=== PATIENT | female | born 1955 | race Caucasian/White ===

== ENCOUNTER 2022-09-14 05:58 | Observation (INO) | payer OTHER ==
--- NOTE | 2022-09-09 10:50 | RAD REPORT ---
EXAM DESCRIPTION: Dre Harmon (2 Views)09/09/2022 10:17 am CLINICAL HISTORY: Preop for hip surgery COMPARISON: None FINDINGS: The lungs appear clear of acute infiltrate. The heart is normal size IMPRESSION: No acute abnormalities displayed
[2022-09-09 11:10] LABS: Absolute Lymphocytes (CBC) 1.6 K/uL (0.7-4.9); Hematocrit 37.9 % (36.0-45.0); Lymphocytes % 19.6 % (15.3-44.8); MCV 91.9 fL (80-100); MPV 7.9 fL (7.6-11.3); RBC Red Blood Cell Count 4.12 M/uL (3.86-4.86)
[2022-09-09 11:14] LABS: Protime INR 1.05
[2022-09-09 11:26] LABS: Albumin 3.9 g/dL (3.4-5.0); Bilirubin Total 0.3 mg/dL (0.2-1.0); Potassium 4.1 mmol/L (3.5-5.1); Protein, Total 8.2 g/dL (6.4-8.2)
[2022-09-09 12:51] LABS: Specific Gravity 1.028 (1.005-1.030); Urine Bacteria <20 /HPF (<20); Urine Bilirubin NEGATIVE (Negative); Urine Blood Negative (Negative); Urine Clarity Clear (Clear); Urine Color Light-Yellow (Yellow); Urine Glucose NEGATIVE (Negative); Urine Protein NEGATIVE (Negative); Urine RBC <5 /HPF (None Seen); Urine Urobilinogen Normal (Normal); Urine pH 5.5 (5.0-7.0)
[2022-09-09 12:54] LABS: Urine Mucus Slight /HPF (None Seen)
[2022-09-14] MEDS ORDERED: BUPIVACAINE 0.75% (PF) 2 ML SP ONE (06:21)
[2022-09-14] MEDS ORDERED: MORPHINE SULFATE/PF 1 MG/ML (10 ML AMP) ONE (06:21)
[2022-09-14] MEDS ORDERED: BUPIVACAINE 0.25% PF 30 ML VIAL ONE (06:21)
[2022-09-14] MEDS ORDERED: EPINEPHRINE/PF 1 MG/ML AMP ONE ×2 (06:21→09:48)
[2022-09-14] MEDS ORDERED: Oxycodone HCl/Acetaminophen 1 TAB TAB ONE (06:22)
[2022-09-14] MEDS ORDERED: Ringers Lactate 1,000 ML IV ONE ×2 (06:22→08:59)
[2022-09-14] MEDS ORDERED: ACETAMINOPHEN 500 MG TAB ONE (06:22)
[2022-09-14] MEDS ORDERED: CEFAZOLIN SODIUM 2 GM/VIAL ONE (06:22)
[2022-09-14] MEDS ORDERED: CELECOXIB 100 MG CAPSULE ONE (06:22)
[2022-09-14] MEDS ORDERED: GABAPENTIN 100 MG CAP ONE (06:22)
[2022-09-14 06:30] LABS: SARS-CoV-2 Antigen Rapid Res Negative (Negative)
[2022-09-14] MEDS ORDERED: FENTANYL CITR 100 MCG/2 ML ONE (06:34)
[2022-09-14] MEDS ORDERED: LIDOCAINE 2% MPF 5 ML VIAL ONE (06:45)
[2022-09-14] MEDS ORDERED: MIDAZOLAM HCL 2 MG/2 ML INJ ONE (06:45)
[2022-09-14] MEDS ORDERED: propofoL 200 MG/20 ML VIAL IV ONE ×3 (06:52→08:38)
[2022-09-14] MEDS ORDERED: Phenylephrine HCl 10 MG/ML 1 ML VIAL ONE (07:16)
[2022-09-14] MEDS ORDERED: NS 0.9% VIAL 10 ML ONE (07:16)
[2022-09-14] MEDS ORDERED: ROCURONIUM 50 MG/5 ML VIAL IV ONE (07:21)
[2022-09-14] MEDS ORDERED: VECURONIUM 10 MG/VIAL IV ONE (08:06)
[2022-09-14] MEDS ORDERED: NS 0.9% VIAL 20 ML ONE (08:07)
[2022-09-14] MEDS: TRANEXAMIC ACID 1,000 MG/10 ML VIAL IV ONE ×2 (08:27→10:00)
[2022-09-14] MEDS ORDERED: dexAMETHasone 10 MG/ML VIAL ONE (09:49)
[2022-09-14] MEDS ORDERED: SUGAMMADEX SODIUM 200 MG/2 ML VIAL IV ONE (10:14)
[2022-09-14] MEDS ORDERED: DOCUSATE NA 100 MG CAP PO PRN (10:39)
[2022-09-14] MEDS ORDERED: HYDROCODONE/APAP 7.5/325 MG TAB PO PRN (10:39)
[2022-09-14] MEDS ORDERED: ONDANSETRON 4 MG/2 ML VIAL IV PRN (10:39)
--- NOTE | 2022-09-14 10:39 | P.BOP ---
Preoperative diagnosis: left hip arthritis Postoperative diagnosis: same Primary procedure: left total hip arthoplasty Estimated blood loss: 150ccs Anesthesia: General Complications: None Transferred to: Recovery Room Condition: Good
--- OUTSIDE RECORDS SUMMARY | 2022-09-14 11:15 | XMS REPORT | Continuity of Care Document ---
:1955 Author Organization [facility] t Address [address] [place] [id number] Care Team Providers Name Role Phone John Hay Primary Care Physician [phone] John Hay Attending Clinician Unavailable Sean Mendieta Attending Clinician Unavailable KYLE GAO Attending Clinician Unavailable Rupa Attending Clinician Unavailable Sean Mendieta Attending Clinician [phone] Frances Perez MA Attending Clinician Unavailable John Hay Admitting Clinician Unavailable Sean Mendieta Admitting Clinician Unavailable Rupa Admitting Clinician Unavailable Payers Payer Name Policy Type Policy Number Effective Date Expiration Date S marcy JASMYNER [id number] 2020 [facility] 00:00:00 [facility] 53 [id number] 2022 Common Spiri t 00:00:00 - [facility] AMBETTER [place] - [id number] [facility] 3 (O) Ambetter from [id number] 2021 Common Spi [address] [facility] 00:00:00 - [facility] Problems Condition Condition Condition Status Onset Resolution Last Treating Co mments Source Name Details Category Date Date Treatment Clinician Date Limp Limp Disease Active [facility] 00:00: 00 [id number] Pain of Problem Comm on right hip [facility] [id number] Primary Problem Comm on osteoarthr Spirit itis of - [facility] left hip [facility] [id number] Pain of Problem Comm on left hip Spirit joint - [facility] [id number] Status Problem Common post right [facility] hip - [facility] [id number] Body mass Problem Com mon index Spirit [BMI] - [facility] 37.0-37.9, [facility] [id number] Other Problem Common obesity Spirit due to - [facility] excess [facility] [id number] Morbid Problem Commo n 9104 (severe) Spirit obesity - [facility] due to [facility] [id number] Gastroesop Problem Co mmon hageal Spirit reflux - [facility] disease [facility] esophagiti Medica l s, Center unspecifie d whether hemorrhage [id number] Adult BMI Problem Com mon 40.0-44.9 Spirit kg/sq m - [facility] [id number] PUD Problem Common (peptic Spirit ulcer - [facility] disease) [facility] [id number] Mixed Problem Common hyperlipid Spirit emia - [facility] [id number] Benign Problem Common essential Spirit HTN - [facility] [id number] Non-season Problem Com mon al Spirit allergic - [facility] rhinitis, [facility] Right hip Right hip Problem Com mon crepitus crepitus Spirit - [facility] [id number] Primary Problem Comm on osteoarthr Spirit itis of - [facility] right hip [facility] Allergies, Adverse Reactions, Alerts Allergy Allergy Status Severity Reaction(s) Onset Inactive Treating Comm ents Source Name Type Date Date Clinician No Known DA Active [facility]12 Clear Allergie 00:00: Lew s [address] [place] [address] Social History Social Habit Start Date Stop Date Quantity Comments Source History of Common Spirit - Tobacco Use [facility] Sex Assigned At Common Sp steve - [facility] Exposure to Not sure [facility] SARS-CoV-2 (event) Alcohol intake 2021-10-22 2021-10-22 Lifetime [facility] 00:00:00 00:00:00 non-drinker (finding) Tobacco use and 2021-04-24 2021-04-24 Smokeless tobacco [facility] exposure 00:00:00 00:00:00 non-user Smoking Status Start Date Stop Date Source Never Smoker Common [employer] [facility] Medications Ordered Filled Start Stop Current Ordering Indication Dosage Frequency Signature Comments Components Source Medication Medication Date Date Medication? Clinician (SIG) Name Name omeprazole 2022- No [id number] 20mg QD Take 1 [facility] (PriLOSEC) 10-22 9102 capsule [facility] [address] 00:00: 04:59 (20 mg capsule 00 :00 total) by mouth 1 (one) time each day. Do not crush or chew. Diclofenac 2021- No [id number] Apply [facility] 10-22 9102 [id number] topically [facility] (Voltaren) 00:00: 04:59 3D 3 (three) 1 % 00 :00 times a external day if gel needed (pain). APPLY 4 GRAMS TO AFFECTED AREA, DO NOT EXCEED GREATER THAN 16 GRAMS A DAY meloxicam 2021- No [id number] 7.5mg Take 1 [facility] (Mobic) 7.5 10-22 9102 tablet [facility]alt [facility] MG tablet 00:00: 04:59 (7.5 mg 00 :00 total) by mouth 1 (one) time each day if needed (pain). celecoxib Yes [id number] TAKE 1 [facility] (CeleBREX) 3- 9108 CAPSULE BY [facility]a [facility]th 200 MG 00:00: MOUTH 1 capsule 00 TIME EACH DAY. celecoxib Yes [id number] TAKE 1 [facility] (CeleBREX) 1-19 9108 CAPSULE BY [facility] 200 MG 00:00: MOUTH 1 capsule 00 TIME EACH DAY. meloxicam 2021- No [id number] 7.5mg TAKE 1 [facility] (Mobic) 7.5 14 02-14 104 TABLET Healt [facility] MG tablet 00:00: 05:59 (7.5 MG 00 :00 TOTAL) BY MOUTH 1 (ONE) TIME EACH DAY IF NEEDED (PAIN). Ibuprofen-F 2020-08- No 1{tbl} Take 1 U T amotidine 09-17-17 tablet by Heal th 800-26.6 MG 14:07: 00:00 mouth. tablet 54 :00 celecoxib 2020-08- No [id number] 200mg QD Take 1 [facility] (CeleBREX) 09-17 9108 capsule Healt h 200 MG 00:00: 05:59 (200 mg capsule 00 :00 total) by mouth 1 (one) time each day. Diclofenac 2020-08- No [id number] Apply [facility] Sodium 09-17 9108 [id number] topically [facility] (Voltaren) 00:00: 05:59 3D 3 (three) 1 % 00 :00 times a external day if gel needed (pain). APPLY 4 GRAMS TO AFFECTED AREA, DO NOT EXCEED GREATER THAN 16 GRAMS A DAY lisinopril- 2020-08 Yes [facility] hydroCHLORO 0-23 Health thiazide 00:00: 20-25 MG 00 tablet lisinopril- 2020-08 Yes [facility] hydroCHLORO 0-23 Health thiazide 00:00: 20-25 MG 00 tablet lisinopril- 2020-08 Yes [facility] hydroCHLORO 0-23 Health thiazide 00:00: 20-25 MG 00 tablet lisinopril- 2020-08 Yes [facility] hydroCHLORO 0-01 Health thiazide 00:00: 20-25 MG 00 tablet Meloxicam 2020-08 Yes [facility] 7.5 MG 0-01 Health tablet 00:00: dispersible 00 lisinopril- 2020-08 Yes [facility] hydroCHLORO 0-01 Health thiazide 00:00: 20-25 MG 00 tablet Meloxicam 2020-08 Yes [facility] 7.5 MG 0-01 Health tablet 00:00: dispersible 00 lisinopril- 2020-08 Yes UT hydroCHLORO 0-01 Health thiazide 00:00: 20-25 MG 00 tablet Meloxicam 2020-08 Yes [facility] 7.5 MG 0-01 Health tablet 00:00: dispersible 00 Ibuprofen-F 2020-0 Yes 1{tbl} Take 1 UT amotidine 9-24 tablet by Healt h 800-26.6 MG 13:35: mouth. tablet 15 Ibuprofen-F Yes 1{tbl} Take 1 [facility] amotidine 9-24 tablet by Healt h 800-26.6 MG 13:35: mouth. tablet 15 omeprazole 2020- No [id number] 20mg QD Take 1 [facility] OTC 04-24 104 tablet (20 Health (PriLOSEC 00:00: 04:59 mg total) OTC) 20 MG 00 :00 by mouth 1 EC tablet (one) time each day. Do not crush, chew, or split. Take w/ NSAID Diclofenac 2020- No [id number] Apply [facility] 04-24 104 [id number] topically [facility] (Voltaren) 00:00: 04:59 3D 3 (three) 1 % 00 :00 times a external day if gel needed (pain). Apply 4 grams to affected area not to exceed 16 grams every day meloxicam 2020- No [id number] 7.5mg Take 1 [facility] (Mobic) 7.5 04-24 104 tablet Healt h MG tablet 00:00: 04:59 (7.5 mg 00 :00 total) by mouth 1 (one) time each day if needed (pain). omeprazole 2020- No [id number] 20mg QD Take 1 UT OTC 04-24 104 tablet (20 Health (PriLOSEC 00:00: 04:59 mg total) OTC) 20 MG 00 :00 by mouth 1 EC tablet (one) time each day. Do not crush, chew, or split. Take w/ NSAID Diclofenac 2020- No [id number] Apply [facility] Sodium 04-24 104 [id number] topically [facility] (Voltaren) 00:00: 04:59 3D 3 (three) 1 % 00 :00 times a external day if gel needed (pain). Apply 4 grams to affected area not to exceed 16 grams every day meloxicam 2020- No [id number] 7.5mg Take 1 UT (Mobic) 7.5 04-24 104 tablet Healt h MG tablet 00:00: 04:59 (7.5 mg 00 :00 total) by mouth 1 (one) time each day if needed (pain). methylPREDN 2020- No [id number] 4mg Take 1 UT ISolone 04-24 104 tablet (4 Health (Medrol 00:00: 04:59 mg total) Dospak) 4 00 :00 by mouth 1 MG tablets (one) time for 1 dose. Use as directed by package instructio ns methylPREDN 2020- No [id number] 4mg Take 1 UT ISolone 04-24 104 tablet (4 Health (Medrol 00:00: 04:59 mg total) Dospak) 4 00 :00 by mouth 1 MG tablets (one) time for 1 dose. Use as directed by package instructio ns lisinopril- 2020-0 Yes [facility] hydroCHLORO 04-07 Health thiazide 00:00: 10-12.5 MG 00 tablet lisinopril- 2020-0 Yes [facility] hydroCHLORO 04-07 Health thiazide 00:00: 10-12.5 MG 00 tablet lisinopril- 2020-0 2020- No [facility] hydroCHLORO 04-07 12-17 Health thiazide 00:00: 00:00 10-12.5 MG 00 :00 tablet albuterol albuterol No albuterol Mayela sulfate HFA sulfate HFA sulfate [facility] 90 90 HFA 90 dic mcg/actuati mcg/actuati mcg/actuat Sports on aerosol on aerosol ion Med icin inhaler inhaler aerosol e inhaler celecoxib celecoxib No celecoxib Mayela 200 mg 200 mg 200 mg [facility] capsule capsule capsule dic Sports Medicin e diclofenac diclofenac No diclofenac Mayela 1 % topical 1 % topical 1 % O rthope gel gel topical dic gel Sports Medicin e lisinopril lisinopril No lisinopril Mayela 10 10 10 [facility] mg-hydrochl mg-hydrochl mg-hydroch dic orothiazide orothiazide lorothiazi Sports 12.5 mg 12.5 mg de 12.5 mg Med icin tablet tablet tablet e lisinopril lisinopril No lisinopril Mayela 20 20 20 [facility] mg-hydrochl mg-hydrochl mg-hydroch dic orothiazide orothiazide lorothiazi Sports 25 mg 25 mg de 25 mg Medicin tablet tablet tablet e meloxicam meloxicam No meloxicam Mayela 7.5 mg 7.5 mg 7.5 mg [facility] tablet tablet tablet dic Sports Medicin e methylpredn methylpredn No methylpred Mayela isolone 4 isolone 4 nisolone 4 [facility] mg tablet mg tablet mg tablet dic Sports Medicin e omeprazole omeprazole No omeprazole Mayela 20 mg 20 mg 20 mg [facility] capsule,del capsule,del capsule,de dic ayed ayed layed Sports release release release Medici n e omeprazole omeprazole No omeprazole Mayela 40 mg 40 mg 40 mg [facility] capsule,del capsule,del capsule,de dic ayed ayed layed Sports release release release Medici n e Suprep Suprep No Suprep Mayela Bowel Prep Bowel Prep Bowel Prep [facility] Kit 17.5 Kit 17.5 Kit 17.5 dic gram-3.13 gram-3.13 gram-3.13 Sports gram-1.6 gram-1.6 gram-1.6 Med icin gram oral gram oral gram oral e solution solution solution albuterol albuterol No albuterol Mayela sulfate HFA sulfate HFA sulfate [facility] 90 90 HFA 90 dic mcg/actuati mcg/actuati mcg/actuat Sports on aerosol on aerosol ion Med icin inhaler inhaler aerosol e inhaler celecoxib celecoxib No celecoxib Mayela 200 mg 200 mg 200 mg [facility] capsule capsule capsule dic Sports Medicin e diclofenac diclofenac No diclofenac Mayela 1 % topical 1 % topical 1 % O rthope gel gel topical dic gel Sports Medicin e lisinopril lisinopril No lisinopril Mayela 10 10 10 [facility] mg-hydrochl mg-hydrochl mg-hydroch dic orothiazide orothiazide lorothiazi Sports 12.5 mg 12.5 mg de 12.5 mg Med icin tablet tablet tablet e lisinopril lisinopril No lisinopril Mayela 20 20 20 [facility] mg-hydrochl mg-hydrochl mg-hydroch dic orothiazide orothiazide lorothiazi Sports 25 mg 25 mg de 25 mg Medicin tablet tablet tablet e meloxicam meloxicam No meloxicam Mayela 7.5 mg 7.5 mg 7.5 mg [facility] tablet tablet tablet dic Sports Medicin e methylpredn methylpredn No methylpred Mayela isolone 4 isolone 4 nisolone 4 [facility] mg tablet mg tablet mg tablet dic Sports Medicin e omeprazole omeprazole No omeprazole Mayela 20 mg 20 mg 20 mg [facility] capsule,del capsule,del capsule,de dic ayed ayed layed Sports release release release Medici n e omeprazole omeprazole No omeprazole Mayela 40 mg 40 mg 40 mg [facility] capsule,del capsule,del capsule,de dic ayed ayed layed Sports release release release Medici n e Suprep Suprep No Suprep Mayela Bowel Prep Bowel Prep Bowel Prep [facility] Kit 17.5 Kit 17.5 Kit 17.5 dic gram-3.13 gram-3.13 gram-3.13 Sports gram-1.6 gram-1.6 gram-1.6 Med icin gram oral gram oral gram oral e solution solution solution albuterol albuterol No albuterol Mayela sulfate HFA sulfate HFA sulfate [facility] 90 90 HFA 90 dic mcg/actuati mcg/actuati mcg/actuat Sports on aerosol on aerosol ion Med icin inhaler inhaler aerosol e inhaler celecoxib celecoxib No celecoxib Mayela 200 mg 200 mg 200 mg [facility] capsule capsule capsule dic Sports Medicin e diclofenac diclofenac No diclofenac Mayela 1 % topical 1 % topical 1 % O rthope gel gel topical dic gel Sports Medicin e lisinopril lisinopril No lisinopril Mayela 10 10 10 [facility] mg-hydrochl mg-hydrochl mg-hydroch dic orothiazide orothiazide lorothiazi Sports 12.5 mg 12.5 mg de 12.5 mg Med icin tablet tablet tablet e lisinopril lisinopril No lisinopril Mayela 20 20 20 [facility] mg-hydrochl mg-hydrochl mg-hydroch dic orothiazide orothiazide lorothiazi Sports 25 mg 25 mg de 25 mg Medicin tablet tablet tablet e meloxicam meloxicam No meloxicam Mayela 7.5 mg 7.5 mg 7.5 mg [facility] tablet tablet tablet dic Sports Medicin e methylpredn methylpredn No methylpred Mayela isolone 4 isolone 4 nisolone 4 [facility] mg tablet mg tablet mg tablet dic Sports Medicin e omeprazole omeprazole No omeprazole Mayela 20 mg 20 mg 20 mg [facility] capsule,del capsule,del capsule,de dic ayed ayed layed Sports release release release Medici n e omeprazole omeprazole No omeprazole Mayela 40 mg 40 mg 40 mg [facility] capsule,del capsule,del capsule,de dic ayed ayed layed Sports release release release Medici n e Suprep Suprep No Suprep Mayela Bowel Prep Bowel Prep Bowel Prep [facility] Kit 17.5 Kit 17.5 Kit 17.5 dic gram-3.13 gram-3.13 gram-3.13 Sports gram-1.6 gram-1.6 gram-1.6 Med icin gram oral gram oral gram oral e solution solution solution albuterol albuterol No albuterol Mayela sulfate HFA sulfate HFA sulfate [facility] 90 90 HFA 90 dic mcg/actuati mcg/actuati mcg/actuat Sports on aerosol on aerosol ion Med icin inhaler inhaler aerosol e inhaler celecoxib celecoxib No celecoxib Mayela 200 mg 200 mg 200 mg [facility] capsule capsule capsule dic Sports Medicin e diclofenac diclofenac No diclofenac Mayela 1 % topical 1 % topical 1 % O rthope gel gel topical dic gel Sports Medicin e lisinopril lisinopril No lisinopril Mayela 10 10 10 [facility] mg-hydrochl mg-hydrochl mg-hydroch dic orothiazide orothiazide lorothiazi Sports 12.5 mg 12.5 mg de 12.5 mg Med icin tablet tablet tablet e lisinopril lisinopril No lisinopril Mayela 20 20 20 [facility] mg-hydrochl mg-hydrochl mg-hydroch dic orothiazide orothiazide lorothiazi Sports 25 mg 25 mg de 25 mg Medicin tablet tablet tablet e meloxicam meloxicam No meloxicam Mayela 7.5 mg 7.5 mg 7.5 mg [facility] tablet tablet tablet dic Sports Medicin e methylpredn methylpredn No methylpred Mayela isolone 4 isolone 4 nisolone 4 [facility] mg tablet mg tablet mg tablet dic Sports Medicin e omeprazole omeprazole No omeprazole Mayela 20 mg 20 mg 20 mg [facility] capsule,del capsule,del capsule,de dic ayed ayed layed Sports release release release Medici n e omeprazole omeprazole No omeprazole Mayela 40 mg 40 mg 40 mg [facility] capsule,del capsule,del capsule,de dic ayed ayed layed Sports release release release Medici n e Suprep Suprep No Suprep Mayela Bowel Prep Bowel Prep Bowel Prep [facility] Kit 17.5 Kit 17.5 Kit 17.5 dic gram-3.13 gram-3.13 gram-3.13 Sports gram-1.6 gram-1.6 gram-1.6 Med icin gram oral gram oral gram oral e solution solution solution albuterol albuterol No albuterol Mayela sulfate HFA sulfate HFA sulfate [facility] 90 90 HFA 90 dic mcg/actuati mcg/actuati mcg/actuat Sports on aerosol on aerosol ion Med icin inhaler inhaler aerosol e inhaler aspirin 81 aspirin 81 No aspirin 81 Mayela mg mg mg [facility] tablet,jonathan tablet,jonathan tablet,del dic yed release yed release ayed S ports release Medicin e celecoxib celecoxib No celecoxib Mayela 200 mg 200 mg 200 mg [facility] capsule capsule capsule dic Sports Medicin e diclofenac diclofenac No diclofenac Mayela 1 % topical 1 % topical 1 % O rthope gel gel topical dic gel Sports Medicin e doxycycline doxycycline No doxycyclin Mayela hyclate 100 hyclate 100 e hyclate [facility] mg capsule mg capsule 100 mg d ic capsule Sports Medicin e hydrocodone hydrocodone No hydrocodon Mayela 10 10 e 10 [facility] mg-acetamin mg-acetamin mg-acetami dic ophen 325 ophen 325 nophen 325 Sports mg tablet mg tablet mg tablet Medicin e lisinopril lisinopril No lisinopril Mayela 10 10 10 [facility] mg-hydrochl mg-hydrochl mg-hydroch dic orothiazide orothiazide lorothiazi Sports 12.5 mg 12.5 mg de 12.5 mg Med icin tablet tablet tablet e lisinopril lisinopril No lisinopril Mayela 20 20 20 [facility] mg-hydrochl mg-hydrochl mg-hydroch dic orothiazide orothiazide lorothiazi Sports 25 mg 25 mg de 25 mg Medicin tablet tablet tablet e meloxicam meloxicam No meloxicam Mayela 7.5 mg 7.5 mg 7.5 mg [facility] tablet tablet tablet dic Sports Medicin e methocarbam methocarbam No methocarba Mayela ol 500 mg ol 500 mg mol 500 mg [facility] tablet tablet tablet dic Sports Medicin e methylpredn methylpredn No methylpred Mayela isolone 4 isolone 4 nisolone 4 [facility] mg tablet mg tablet mg tablet dic Sports Medicin e omeprazole omeprazole No omeprazole Mayela 20 mg 20 mg 20 mg [facility] capsule,del capsule,del capsule,de dic ayed ayed layed Sports release release release Medici n e omeprazole omeprazole No omeprazole Mayela 40 mg 40 mg 40 mg [facility] capsule,del capsule,del capsule,de dic ayed ayed layed Sports release release release Medici n e Suprep Suprep No Suprep Mayela Bowel Prep Bowel Prep Bowel Prep [facility] Kit 17.5 Kit 17.5 Kit 17.5 dic gram-3.13 gram-3.13 gram-3.13 Sports gram-1.6 gram-1.6 gram-1.6 Med icin gram oral gram oral gram oral e solution solution solution tramadol 50 tramadol 50 No tramadol Mayela mg tablet mg tablet 50 mg Orth ope tablet dic Sports Medicin e albuterol albuterol No albuterol Mayela sulfate HFA sulfate HFA sulfate [facility] 90 90 HFA 90 dic mcg/actuati mcg/actuati mcg/actuat Sports on aerosol on aerosol ion Med icin inhaler inhaler aerosol e inhaler Lisinopril- Lisinopril- No 1{table QD Lisinopril hydroCHLORO hydroCHLORO t} -hydroCHLO thiazide thiazide ROthiazide 20-25 MG 20-25 MG 20-25 MG aspirin 81 aspirin 81 No aspirin 81 Mayela mg mg mg [facility] tablet,jonathan tablet,jonathan tablet,del dic yed release yed release ayed S ports release Medicin e celecoxib celecoxib No celecoxib Mayela 200 mg 200 mg 200 mg [facility] capsule capsule capsule dic Sports Medicin e diclofenac diclofenac No diclofenac Mayela 1 % topical 1 % topical 1 % O rthope gel gel topical dic gel Sports Medicin e doxycycline doxycycline No doxycyclin Mayela hyclate 100 hyclate 100 e hyclate [facility] mg capsule mg capsule 100 mg d ic capsule Sports Medicin e hydrocodone hydrocodone No hydrocodon Mayela 10 10 e 10 [facility] mg-acetamin mg-acetamin mg-acetami dic ophen 325 ophen 325 nophen 325 Sports mg tablet mg tablet mg tablet Medicin e lisinopril lisinopril No lisinopril Maeyla 10 10 10 [facility] mg-hydrochl mg-hydrochl mg-hydroch dic orothiazide orothiazide lorothiazi Sports 12.5 mg 12.5 mg de 12.5 mg Med icin tablet tablet tablet e CeleBREX CeleBREX No 1{capsu QD CeleBREX 200 MG 200 MG le_with 200 MG _food} lisinopril lisinopril No lisinopril Mayela 20 20 20 [facility] mg-hydrochl mg-hydrochl mg-hydroch dic orothiazide orothiazide lorothiazi Sports 25 mg 25 mg de 25 mg Medicin tablet tablet tablet e Diclofenac Diclofenac No Diclofenac Sodium 1 % Sodium 1 % Sodium 1 % meloxicam meloxicam No meloxicam Mayela 7.5 mg 7.5 mg 7.5 mg [facility] tablet tablet tablet dic Sports Medicin e ProAir HFA ProAir HFA No 2{puffs ProAir HFA 108 (90 108 (90 _as_nee 108 (90 Base) Base) ded} Base) MCG/ACT MCG/ACT MCG/ACT methocarbam methocarbam No methocarba Mayela ol 500 mg ol 500 mg mol 500 mg [facility] tablet tablet tablet dic Sports Medicin e Omeprazole Omeprazole No QD Omeprazole 20 MG 20 MG 20 MG methylpredn methylpredn No methylpred Mayela isolone 4 isolone 4 nisolone 4 [facility] mg tablet mg tablet mg tablet dic Sports Medicin e methylPREDN methylPREDN No methylPRED ISolone 4 ISolone 4 NISolone 4 MG MG MG Lisinopril- Lisinopril- No Lisinopril hydroCHLORO hydroCHLORO -hydroCHLO thiazide thiazide ROthiazide 20-25 MG 20-25 MG 20-25 MG omeprazole omeprazole No omeprazole Mayela 20 mg 20 mg 20 mg [facility] capsule,del capsule,del capsule,de dic ayed ayed layed Sports release release release Medici n e Meloxicam Meloxicam No 1{table QD Meloxicam 7.5 MG 7.5 MG t} 7.5 MG omeprazole omeprazole No omeprazole Mayela 40 mg 40 mg 40 mg [facility] capsule,del capsule,del capsule,de dic ayed ayed layed Sports release release release Medici n e Aleve Aleve No Aleve Suprep Suprep No Suprep Mayela Bowel Prep Bowel Prep Bowel Prep [facility] Kit 17.5 Kit 17.5 Kit 17.5 dic gram-3.13 gram-3.13 gram-3.13 Sports gram-1.6 gram-1.6 gram-1.6 Med icin gram oral gram oral gram oral e solution solution solution Lisinopril- Lisinopril- No 1{table QD Lisinopril hydroCHLORO hydroCHLORO t} -hydroCHLO thiazide thiazide ROthiazide 20-25 MG 20-25 MG 20-25 MG tramadol 50 tramadol 50 No tramadol Mayela mg tablet mg tablet 50 mg Orth ope tablet dic Sports Medicin e CeleBREX CeleBREX No 1{capsu QD CeleBREX 200 MG 200 MG le_with 200 MG _food} Diclofenac Diclofenac No Diclofenac Sodium 1 % Sodium 1 % Sodium 1 % ProAir HFA ProAir HFA No 2{puffs ProAir HFA 108 (90 108 (90 _as_nee 108 (90 Base) Base) ded} Base) MCG/ACT MCG/ACT MCG/ACT Omeprazole Omeprazole No QD Omeprazole 20 MG 20 MG 20 MG methylPREDN methylPREDN No methylPRED ISolone 4 ISolone 4 NISolone 4 MG MG MG Lisinopril- Lisinopril- No Lisinopril hydroCHLORO hydroCHLORO -hydroCHLO thiazide thiazide ROthiazide 20-25 MG 20-25 MG 20-25 MG Meloxicam Meloxicam No 1{table QD Meloxicam 7.5 MG 7.5 MG t} 7.5 MG Aleve Aleve No Aleve Meloxicam Meloxicam No 1{table QD Meloxicam 7.5 MG 7.5 MG t} 7.5 MG CeleBREX CeleBREX No 1{capsu QD CeleBREX 200 MG 200 MG le_with 200 MG _food} ProAir HFA ProAir HFA No 2{puffs ProAir HFA 108 (90 108 (90 _as_nee 108 (90 Base) Base) ded} Base) MCG/ACT MCG/ACT MCG/ACT methylPREDN methylPREDN No methylPRED ISolone 4 ISolone 4 NISolone 4 MG MG MG Omeprazole Omeprazole No QD Omeprazole 20 MG 20 MG 20 MG Aleve Aleve No Aleve Diclofenac Diclofenac No Diclofenac Sodium 1 % Sodium 1 % Sodium 1 % Lisinopril- Lisinopril- No 1{table QD Lisinopril hydroCHLORO hydroCHLORO t} -hydroCHLO thiazide thiazide ROthiazide 20-25 MG 20-25 MG 20-25 MG Meloxicam Meloxicam No 1{table QD Meloxicam 7.5 MG 7.5 MG t} 7.5 MG CeleBREX CeleBREX No 1{capsu QD CeleBREX 200 MG 200 MG le_with 200 MG _food} ProAir HFA ProAir HFA No 2{puffs ProAir HFA 108 (90 108 (90 _as_nee 108 (90 Base) Base) ded} Base) MCG/ACT MCG/ACT MCG/ACT methylPREDN methylPREDN No methylPRED ISolone 4 ISolone 4 NISolone 4 MG MG MG Omeprazole Omeprazole No QD Omeprazole 20 MG 20 MG 20 MG Aleve Aleve No Aleve Diclofenac Diclofenac No Diclofenac Sodium 1 % Sodium 1 % Sodium 1 % Lisinopril- Lisinopril- No 1{table QD Lisinopril hydroCHLORO hydroCHLORO t} -hydroCHLO thiazide thiazide ROthiazide 20-25 MG 20-25 MG 20-25 MG Meloxicam Meloxicam No 1{table QD Meloxicam 7.5 MG 7.5 MG t} 7.5 MG CeleBREX CeleBREX No 1{capsu QD CeleBREX 200 MG 200 MG le_with 200 MG _food} ProAir HFA ProAir HFA No 2{puffs ProAir HFA 108 (90 108 (90 _as_nee 108 (90 Base) Base) ded} Base) MCG/ACT MCG/ACT MCG/ACT methylPREDN methylPREDN No methylPRED ISolone 4 ISolone 4 NISolone 4 MG MG MG Omeprazole Omeprazole No QD Omeprazole 20 MG 20 MG 20 MG Aleve Aleve No Aleve Diclofenac Diclofenac No Diclofenac Sodium 1 % Sodium 1 % Sodium 1 % Lisinopril- Lisinopril- No 1{table QD Lisinopril hydroCHLORO hydroCHLORO t} -hydroCHLO thiazide thiazide ROthiazide 20-25 MG 20-25 MG 20-25 MG Diclofenac Diclofenac No Diclofenac Sodium 1 % Sodium 1 % Sodium 1 % Lisinopril- Lisinopril- No 1{table QD Lisinopril hydroCHLORO hydroCHLORO t} -hydroCHLO thiazide thiazide ROthiazide 20-25 MG 20-25 MG 20-25 MG CeleBREX CeleBREX No 1{capsu QD CeleBREX 200 MG 200 MG le_with 200 MG _food} Omeprazole Omeprazole No QD Omeprazole 20 MG 20 MG 20 MG methylPREDN methylPREDN No methylPRED ISolone 4 ISolone 4 NISolone 4 MG MG MG Aleve Aleve No Aleve Meloxicam Meloxicam No 1{table QD Meloxicam 7.5 MG 7.5 MG t} 7.5 MG ProAir HFA ProAir HFA No 2{puffs ProAir HFA 108 (90 108 (90 _as_nee 108 (90 Base) Base) ded} Base) MCG/ACT MCG/ACT MCG/ACT Diclofenac Diclofenac No Diclofenac Sodium 1 % Sodium 1 % Sodium 1 % Lisinopril- Lisinopril- No 1{table QD Lisinopril hydroCHLORO hydroCHLORO t} -hydroCHLO thiazide thiazide ROthiazide 20-25 MG 20-25 MG 20-25 MG CeleBREX CeleBREX No 1{capsu QD CeleBREX 200 MG 200 MG le_with 200 MG _food} Omeprazole Omeprazole No QD Omeprazole 20 MG 20 MG 20 MG methylPREDN methylPREDN No methylPRED ISolone 4 ISolone 4 NISolone 4 MG MG MG Aleve Aleve No Aleve Meloxicam Meloxicam No 1{table QD Meloxicam 7.5 MG 7.5 MG t} 7.5 MG ProAir HFA ProAir HFA No 2{puffs ProAir HFA 108 (90 108 (90 _as_nee 108 (90 Base) Base) ded} Base) MCG/ACT MCG/ACT MCG/ACT Diclofenac Diclofenac No Diclofenac Sodium 1 % Sodium 1 % Sodium 1 % Lisinopril- Lisinopril- No 1{table QD Lisinopril hydroCHLORO hydroCHLORO t} -hydroCHLO thiazide thiazide ROthiazide 20-25 MG 20-25 MG 20-25 MG CeleBREX CeleBREX No 1{capsu QD CeleBREX 200 MG 200 MG le_with 200 MG _food} Omeprazole Omeprazole No QD Omeprazole 20 MG 20 MG 20 MG methylPREDN methylPREDN No methylPRED ISolone 4 ISolone 4 NISolone 4 MG MG MG Aleve Aleve No Aleve Meloxicam Meloxicam No 1{table QD Meloxicam 7.5 MG 7.5 MG t} 7.5 MG ProAir HFA ProAir HFA No 2{puffs ProAir HFA 108 (90 108 (90 _as_nee 108 (90 Base) Base) ded} Base) MCG/ACT MCG/ACT MCG/ACT CeleBREX CeleBREX No 1{capsu QD CeleBREX 200 MG 200 MG le_with 200 MG _food} Aleve Aleve No Aleve Meloxicam Meloxicam No 1{table QD Meloxicam 7.5 MG 7.5 MG t} 7.5 MG Lisinopril- Lisinopril- No Lisinopril hydroCHLORO hydroCHLORO -hydroCHLO thiazide thiazide ROthiazide 20-25 MG 20-25 MG 20-25 MG Diclofenac Diclofenac No Diclofenac Sodium 1 % Sodium 1 % Sodium 1 % ProAir HFA ProAir HFA No 2{puffs ProAir HFA 108 (90 108 (90 _as_nee 108 (90 Base) Base) ded} Base) MCG/ACT MCG/ACT MCG/ACT Omeprazole Omeprazole No QD Omeprazole 20 MG 20 MG 20 MG Lisinopril- Lisinopril- No 1{table QD Lisinopril hydroCHLORO hydroCHLORO t} -hydroCHLO thiazide thiazide ROthiazide 20-25 MG 20-25 MG 20-25 MG methylPREDN methylPREDN No methylPRED ISolone 4 ISolone 4 NISolone 4 MG MG MG Meloxicam Meloxicam No 1{table QD Meloxicam 7.5 MG 7.5 MG t} 7.5 MG Diclofenac Diclofenac No Diclofenac Sodium 1 % Sodium 1 % Sodium 1 % CeleBREX CeleBREX No 1{capsu QD CeleBREX 200 MG 200 MG le_with 200 MG _food} Lisinopril- Lisinopril- No 1{table QD Lisinopril hydroCHLORO hydroCHLORO t} -hydroCHLO thiazide thiazide ROthiazide 20-25 MG 20-25 MG 20-25 MG ProAir HFA ProAir HFA No 2{puffs ProAir HFA 108 (90 108 (90 _as_nee 108 (90 Base) Base) ded} Base) MCG/ACT MCG/ACT MCG/ACT methylPREDN methylPREDN No methylPRED ISolone 4 ISolone 4 NISolone 4 MG MG MG Aleve Aleve No Aleve Lisinopril- Lisinopril- No Lisinopril hydroCHLORO hydroCHLORO -hydroCHLO thiazide thiazide ROthiazide 20-25 MG 20-25 MG 20-25 MG Omeprazole Omeprazole No QD Omeprazole 20 MG 20 MG 20 MG Omeprazole Omeprazole No QD Omeprazole 20 MG 20 MG 20 MG Diclofenac Diclofenac No Diclofenac Sodium 1 % Sodium 1 % Sodium 1 % methylPREDN methylPREDN No methylPRED ISolone 4 ISolone 4 NISolone 4 MG MG MG Lisinopril- Lisinopril- No 1{table QD Lisinopril hydroCHLORO hydroCHLORO t} -hydroCHLO thiazide thiazide ROthiazide 20-25 MG 20-25 MG 20-25 MG Aleve Aleve No Aleve CeleBREX CeleBREX No 1{capsu QD CeleBREX 200 MG 200 MG le_with 200 MG _food} Lisinopril- Lisinopril- No Lisinopril hydroCHLORO hydroCHLORO -hydroCHLO thiazide thiazide ROthiazide 20-25 MG 20-25 MG 20-25 MG ProAir HFA ProAir HFA No 2{puffs ProAir HFA 108 (90 108 (90 _as_nee 108 (90 Base) Base) ded} Base) MCG/ACT MCG/ACT MCG/ACT Meloxicam Meloxicam No 1{table QD Meloxicam 7.5 MG 7.5 MG t} 7.5 MG Omeprazole Omeprazole No QD Omeprazole 20 MG 20 MG 20 MG Diclofenac Diclofenac No Diclofenac Sodium 1 % Sodium 1 % Sodium 1 % methylPREDN methylPREDN No methylPRED ISolone 4 ISolone 4 NISolone 4 MG MG MG Lisinopril- Lisinopril- No 1{table QD Lisinopril hydroCHLORO hydroCHLORO t} -hydroCHLO thiazide thiazide ROthiazide 20-25 MG 20-25 MG 20-25 MG Aleve Aleve No Aleve CeleBREX CeleBREX No 1{capsu QD CeleBREX 200 MG 200 MG le_with 200 MG _food} Lisinopril- Lisinopril- No Lisinopril hydroCHLORO hydroCHLORO -hydroCHLO thiazide thiazide ROthiazide 20-25 MG 20-25 MG 20-25 MG ProAir HFA ProAir HFA No 2{puffs ProAir HFA 108 (90 108 (90 _as_nee 108 (90 Base) Base) ded} Base) MCG/ACT MCG/ACT MCG/ACT Meloxicam Meloxicam No 1{table QD Meloxicam 7.5 MG 7.5 MG t} 7.5 MG Omeprazole Omeprazole No QD Omeprazole 20 MG 20 MG 20 MG Diclofenac Diclofenac No Diclofenac Sodium 1 % Sodium 1 % Sodium 1 % methylPREDN methylPREDN No methylPRED ISolone 4 ISolone 4 NISolone 4 MG MG MG Lisinopril- Lisinopril- No 1{table QD Lisinopril hydroCHLORO hydroCHLORO t} -hydroCHLO thiazide thiazide ROthiazide 20-25 MG 20-25 MG 20-25 MG Aleve Aleve No Aleve CeleBREX CeleBREX No 1{capsu QD CeleBREX 200 MG 200 MG le_with 200 MG _food} Lisinopril- Lisinopril- No Lisinopril hydroCHLORO hydroCHLORO -hydroCHLO thiazide thiazide ROthiazide 20-25 MG 20-25 MG 20-25 MG ProAir HFA ProAir HFA No 2{puffs ProAir HFA 108 (90 108 (90 _as_nee 108 (90 Base) Base) ded} Base) MCG/ACT MCG/ACT MCG/ACT Meloxicam Meloxicam No 1{table QD Meloxicam 7.5 MG 7.5 MG t} 7.5 MG Omeprazole Omeprazole No QD Omeprazole 20 MG 20 MG 20 MG Diclofenac Diclofenac No Diclofenac Sodium 1 % Sodium 1 % Sodium 1 % methylPREDN methylPREDN No methylPRED ISolone 4 ISolone 4 NISolone 4 MG MG MG Meloxicam Meloxicam No 1{table QD Meloxicam 7.5 MG 7.5 MG t} 7.5 MG Lisinopril- Lisinopril- No Lisinopril hydroCHLORO hydroCHLORO -hydroCHLO thiazide thiazide ROthiazide 20-25 MG 20-25 MG 20-25 MG Tylenol Tylenol No Tylenol CeleBREX CeleBREX No 1{capsu QD CeleBREX 200 MG 200 MG le_with 200 MG _food} ProAir HFA ProAir HFA No 2{puffs ProAir HFA 108 (90 108 (90 _as_nee 108 (90 Base) Base) ded} Base) MCG/ACT MCG/ACT MCG/ACT Aleve Aleve No Aleve Lisinopril- Lisinopril- No 1{table QD Lisinopril hydroCHLORO hydroCHLORO t} -hydroCHLO thiazide thiazide ROthiazide 20-25 MG 20-25 MG 20-25 MG Meloxicam Meloxicam No 1{table QD Meloxicam 7.5 MG 7.5 MG t} 7.5 MG methylPREDN methylPREDN No methylPRED ISolone 4 ISolone 4 NISolone 4 MG MG MG Aleve Aleve No Aleve ProAir HFA ProAir HFA No 2{puffs ProAir HFA 108 (90 108 (90 _as_nee 108 (90 Base) Base) ded} Base) MCG/ACT MCG/ACT MCG/ACT Omeprazole Omeprazole No QD Omeprazole 20 MG 20 MG 20 MG Diclofenac Diclofenac No Diclofenac Sodium 1 % Sodium 1 % Sodium 1 % Aleve Aleve No Aleve Diclofenac Diclofenac No Diclofenac Sodium 1 % Sodium 1 % Sodium 1 % Lisinopril- Lisinopril- No Lisinopril hydroCHLORO hydroCHLORO -hydroCHLO thiazide thiazide ROthiazide 20-25 MG 20-25 MG 20-25 MG Meloxicam Meloxicam No 1{table QD Meloxicam 7.5 MG 7.5 MG t} 7.5 MG Omeprazole Omeprazole No QD Omeprazole 20 MG 20 MG 20 MG ProAir HFA ProAir HFA No 2{puffs ProAir HFA 108 (90 108 (90 _as_nee 108 (90 Base) Base) ded} Base) MCG/ACT MCG/ACT MCG/ACT Lisinopril- Lisinopril- No 1{table QD Lisinopril hydroCHLORO hydroCHLORO t} -hydroCHLO thiazide thiazide ROthiazide 20-25 MG 20-25 MG 20-25 MG methylPREDN methylPREDN No methylPRED ISolone 4 ISolone 4 NISolone 4 MG MG MG Immunizations Ordered Immunization Filled Immunization Date Status Commen ts Source Name Name FLUZONE HIGH DOSE FLUZONE HIGH DOSE 2022-06-03 [facility] OVER 65 09:31:[facility] - [facility] FLUZONE HIGH DOSE FLUZONE HIGH DOSE 2022-06-03 [facility]pleted [facility] OVER 65 OVER 65 09:31:00 - [facility] FLUZONE HIGH DOSE FLUZONE HIGH DOSE 2022-06-03 [facility]pleted [facility] OVER 65 OVER 65 09:31:00 - [facility] FLUZONE HIGH DOSE FLUZONE HIGH DOSE 2022-06-03 [facility]pleted [facility] OVER 65 OVER 65 09:31:00 - [facility] FLUZONE HIGH DOSE FLUZONE HIGH DOSE 2022-06-03 [facility]pleted [facility] OVER 65 OVER 65 09:31:00 - [facility] Afluria Afluria 2021-04-29 [facility]pleted [facility] 13:40:00 - [facility] Afluria Afluria 2021-04-29 [facility] 13:40:00 - [facility] Afluria Afluria 2021-04-29 [facility] 13:40:00 - [facility] Afluria Afluria 2021-04-29 [facility] 13:40:00 - [facility] Afluria Afluria 2021-04-29 [facility] 13:40:00 - [facility] Afluria Afluria 2021-04-29 [facility] 13:40:00 - [facility] Afluria Afluria 2021-04-29 [facility] 13:40:[facility] - [facility] Afluria Afluria 2021-04-29 [facility] 13:40:[facility] - [facility] Afluria Afluria 2021-04-29 [facility] 13:40:00 - [facility] Afluria Afluria 2021-04-29 [facility]pleted [facility] 13:40:00 - [facility] Afluria Afluria 2021-04-29 [facility] 13:40:[facility] - [facility] Afluria Afluria 2021-04-29 [facility] 13:40:00 [facility] Afluria Afluria 2021-04-29 [facility] 13:40:[facility] - [facility] Afluria Afluria 2021-04-29 [facility] 13:40:[facility] - [facility] Afluria Afluria 2021-04-29 [facility] 13:40:00 - [facility] Afluria Afluria 2021-04-29 [facility] 13:40:00 - [facility] Adacel (Tdap) Adacel (Tdap) 2021-03-10 [facility]pleted [facility] 12:[facility] Adacel (Tdap) Adacel (Tdap) 2021-03-10 [facility] 12:[facility] Adacel (Tdap) Adacel (Tdap) 2021-03-10 [facility]pleted [facility] 12:02[facility] Adacel (Tdap) Adacel (Tdap) 2021-03-10 [facility]pleted [facility] 12:02[facility] Adacel (Tdap) Adacel (Tdap) 2021-03-10 [facility]pleted [facility]:02[facility] Adacel (Tdap) Adacel (Tdap) 2021-03-10 [facility]pleted [facility]:02[facility] Adacel (Tdap) Adacel (Tdap) 2021-03-10 [facility] Adacel (Tdap) Adacel (Tdap) 2021-03-10 [facility]pleted [facility]:02[facility] Adacel (Tdap) Adacel (Tdap) 2021-03-10 [facility]pleted [facility]:02[facility] Adacel (Tdap) Adacel (Tdap) 2021-03-10 [facility]pleted [facility]:02[facility] Adacel (Tdap) Adacel (Tdap) 2021-03-10 [facility]pleted [facility] 12:02:[facility] Adacel (Tdap) Adacel (Tdap) 2021-03-10 [facility]pleted [facility] 12:02:[facility] Adacel (Tdap) Adacel (Tdap) 2021-03-10 [facility]pleted [facility] 12:02:[facility] Adacel (Tdap) Adacel (Tdap) 2021-03-10 [facility]pleted [facility] 12:02:[facility] Adacel (Tdap) Adacel (Tdap) 2021-03-10 [facility]pleted [facility] 12:02:[facility] Adacel (Tdap) Adacel (Tdap) 2021-03-10 [facility]pleted [facility] 12[facility]02:[facility] Vital Signs Vital Name Observation Time Observation Value Comments Source height 2022-06-16 08:30:00 64 [in_i] [facility] weight 2022-06-16 08:30:00 244 [lb_av] [facility] temperature 2022-06-16 08:30:00 97.3 [degF] [facility] bmi 2022-06-16 08:30:00 41.88 kg/m2 [facility] blood pressure 2022-06-16 08:30:00 138 mm[Hg] [facility] - systolic [facility] blood pressure 2022-06-16 08:30:00 82 mm[Hg] [facility] - diastolic [facility] height 2022-06-03 09:30:00 64 [in_i] [facility] weight 2022-06-03 09:30:00 253.2 [lb_av] [facility] temperature 2022-06-03 09:30:00 98.0 [degF] [facility] bmi 2022-06-03 09:30:00 43.46 kg/m2 [facility] oximetry 2022-06-03 09:30:00 98 % [facility] respiratory rate 2022-06-03 09:30:00 18 /min Comm on [facility] blood pressure 2022-06-03 09:30:00 135 mm[Hg] [facility] - systolic [facility] blood pressure 2022-06-03 09:30:00 76 mm[Hg] [facility] Height 2022-05-28 00:00:00 64 [in_i] [facility] BMI (Body Mass 2022-05-28 00:00:00 41 kg/m2 [facility] Body Weight 2022-05-28 00:00:00 239 [lb_av] [facility] Height 2022-04-30 00:00:00 64 [in_i] [facility] BMI (Body Mass 2022-04-30 00:00:00 41 kg/m2 [facility] Body Weight 2022-04-30 00:00:00 239 [lb_av] [facility] Height 2022-03-12 00:00:00 64 [in_i] [facility] BMI (Body Mass 2022-03-12 00:00:00 41.1 kg/m2 [facility] Body Weight 2022-03-12 00:00:00 239.5 [lb_av] [facility] height 2022-03-03 09:30:00 64 [in_i] [facility] weight 2022-03-03 09:30:00 247.1 [lb_av] [facility] temperature 2022-03-03 09:30:00 97.2 [degF] [facility] bmi 2022-03-03 09:30:00 42.41 kg/m2 [facility] oximetry 2022-03-03 09:30:00 98 % [facility] respiratory rate 2022-03-03 09:30:00 18 /min [facility] on [facility] blood pressure 2022-03-03 09:30:00 138 mm[Hg] [facility] - systolic [facility] blood pressure 2022-03-03 09:30:00 84 mm[Hg] [facility] - diastolic [facility] Height 2022-01-08 00:00:00 64 [in_i] [facility] BMI (Body Mass 2022-01-08 00:00:00 42.1 kg/m2 [facility] Body Weight 2022-01-08 00:00:00 245 [lb_av] [facility] height 2021-12-23 09:15:00 64 [in_i] [facility] weight 2021-12-23 09:15:00 244 [lb_av] [facility] bmi 2021-12-23 09:15:00 41.88 kg/m2 [facility] blood pressure 2021-12-23 09:15:00 140 mm[Hg] [facility] blood pressure 2021-12-23 09:15:00 86 mm[Hg] [facility] height 2021-12-02 08:15:00 64 [in_i] [facility] weight 2021-12-02 08:15:00 244 [lb_av] [facility] bmi 2021-12-02 08:15:00 41.88 kg/m2 [facility] blood pressure 2021-12-02 08:15:00 142 mm[Hg] [facility] blood pressure 2021-12-02 08:15:00 86 mm[Hg] [facility] height 2021-11-26 09:40:00 64 [in_i] [facility] weight 2021-11-26 09:40:00 249.1 [lb_av] [facility] temperature 2021-11-26 09:40:00 98.1 [degF] [facility] bmi 2021-11-26 09:40:00 42.75 kg/m2 [facility] S pirit [facility] oximetry 2021-11-26 09:40:00 100 % [facility] respiratory rate 2021-11-26 09:40:00 18 /min [facility] blood pressure 2021-11-26 09:40:00 137 mm[Hg] [facility] blood pressure 2021-11-26 09:40:00 77 mm[Hg] [facility] Body height 2021-10-22 15:45:00 [facility] 2021-10-22 15:45:00 [facility]133 [facility] BMI 2021-10-22 15:45:00 42.34 kg[facility] height 2021-08-19 11:40:00 64 [in_i] [facility] weight 2021-08-19 11:40:00 250 [lb_av] [facility] temperature 2021-08-19 11:40:00 98 [degF] [facility] bmi 2021-08-19 11:40:00 42.91 kg/m2 [facility] blood pressure 2021-08-19 11:40:00 130 mm[Hg] [facility] blood pressure 2021-08-19 11:40:00 72 mm[Hg] [facility] Body height 2021-07-17 20:05:00 [facility]8 [facility] 2021-07-17 20:05:00 120[facility]657 [facility] BMI 2021-07-17 20:05:00 44.95 kg[facility] height 2021-05-19 10:20:00 64 [in_i] [facility] weight 2021-05-19 10:20:00 266.2 [lb_av] [facility] temperature 2021-05-19 10:20:00 97.7 [degF] [facility] bmi 2021-05-19 10:20:00 45.69 kg/m2 [facility] oximetry 2021-05-19 10:20:00 98 % [facility] respiratory rate 2021-05-19 10:20:00 18 /min [facility] on [facility] blood pressure 2021-05-19 10:20:00 134 mm[Hg] [facility] - systolic [facility] blood pressure 2021-05-19 10:20:00 67 mm[Hg] [facility] - diastolic [facility] Body height 2021-04-24 18:32:00 163.8 cm [facility] Body weight 2021-04-24 18:32:00 120.929 kg [facility] BMI 2021-04-24 18:32:00 45.06 kg/m2 [facility] Procedures Procedure Date / Time Performing Clinician Source Performed XR, hip + pelvis, 2022-05-28 00:00:00 [facility] davisdic unilateral, 2 or 3 view [facility] [id number] 2022-04-15 00:00:00 [facility] Total Replacement of 2022-04-15 00:00:00 [facility] Right Hip Joint [facility] XR, hip + pelvis, 2022-01-08 00:00:00 [facility] Orrosey hopedic unilateral, 2 or 3 view [facility] XR HIP 2 OR 3 VW RIGHT 2021-04-24 18:44:00 Kyle Gao [facility] Plan of Care Planned Activity Planned Date Details Comments Source Instructions [facility] Encounters Start End Encounter Admission Attending Care Care Encounter Source Date/Time Date/Time Type Type Clinicians Facility Department ID 2022-06-16 Outpatient Hay, STLMLC [facility] [id number] [facility] 08:12:03 [facility] [id number] [facility] 2022-06-07 [facility] [id number] 16:39:00 [facility] 2022-06-01 [facility] [id number] [facility] 13:01:02 [facility] 2022-03-23 Inpatient SRINIVASAN Mendieta, HCAT[facility] [id number] [facility] 13:00:00 [facility] [id number] [facility] 2021-12-02 Outpatient Hay, STLMLC STLMLC [id number] Common 08:11:02 John [facility] 2021-12-01 Outpatient Hay, STLMLC STLMLC Common 08:15:03 John [facility] 2021-08-26 Outpatient Hay, STLMLC STLMLC [id number] Common 14:17:25 John [address] [facility] 2021-08-26 Outpatient Hay, STLMLC STLMLC [id number] Common 14:02:14 John 8[address] [facility] 2021-08-26 Outpatient Hay, STLMLC STLMLC [id number] Common 14:01:37 John 399[address] [facility] 2021-08-26 Outpatient Hay, STLMLC STLMLC [id number] Common 13:54:51 John 53041 [facility] 2021-08-26 Outpatient Hay, STLMLC STLMLC [id number] Common 13:45:56 John 22633 [facility] 2021-08-26 Outpatient Hay, STLMLC STLMLC [id number] Common 13:36:36 John 10[address] [facility] 2021-07-17 Outpatient [facility] [id number] [place] [facility]:41:[facility] Out[facility] [id number] [place] 13:26:00 Health 2022-07-19 2022-07-19 (TEL) STLMLC STLMLC [id number] [facility] 00:00:00 00:00:00 [facility] 2022-07-19 2022-07-19 (TEL) STLMLC STLMLC [id number] [facility] 00:00:00 00:00:00 [facility] 2022-06-21 2022-06-21 (TEL) STLMLC STLC [id number] [facility] 00:00:00 00:00:00 [facility] 2022-06-16 2022-06-16 OFFICE STLC STLC [id number] Co mmon 00:00:00 00:00:00 VISIT EST [facility] it PT LEVEL 3 - [facility] 2022-06-03 2022-06-[address] [facility] [facility] [id number] Co mmon 00:00:00 00:00:00 [facility]AB PT - [facility] LEVEL 4 [facility] 2022-05-28 2022-05-28 Outpatient FOG_Goytia_ AOSM AOSM [id number] [facility] 00:00:00 00:00:00 Andreea [id number] [facility] 2022-05-28 2022-05-28 Sean N AOSM [place] - Ortho [id number] [facility] 00:00:00 00:00:00 Anahy Mendieta MD: [id number] FOG_Ofc dic [facility] Spo [facility] [place] [address] , Ph. [phone] 2022-05-26 2022-05-26 Outpatient FOG_Goytia_ AOSM AOSM [id number] [facility] 00:00:00 00:00:00 Andreea [id number] [facility] 2022-04-30 2022-04-30 Outpatient FOG_Goytia_ AOSM AOSM [id number] [facility] 00:00:00 00:00:00 Andreea [id number] [facility] 2022-04-30 2022-04-30 Sean N AOSM [place] - Orth[place] [id number] [facility] 00:00:00 00:00:00 Anahy Mendieta MD: [id number] FOG_Ofc dic [facility] Sp[facility] [place] [id number] , Ph. [phone] 2022-04-25 2022-04-25 Outpatient FOG_Goytia_ AOSM AOSM [id number] [facility] 00:00:00 00:00:00 Andreea [id number] [facility] 2022-04-15 2022-04-16 Inpatient EL Gayatri [facility]AT[facility]G [id number] [facility] 09:17:00 12:45:00 [facility] 2022-04-16 2022-04-16 Outpatient FOG_Goytia_ AOSM AOSM [id number] [facility] 00:00:00 00:00:00 Andreea [id number] [facility] 2022-04-15 2022-04-15 Outpatient Gayatri, AOSM AOSM [id number] 00:00:00 00:00:00 Sean Saavedra [id number] 2022-04-15 2022-04-15 Sean Saavedra AOSM [place] - Ortho [id number] [facility] 00:00:00 00:00:00 Anahy Mendieta MD: [id number] [facility] [place] [address] , Ph. [phone] 2022-04-07 2022-04-07 Outpatient FOG_Goytia_ AOSM AOSM [id number] [facility] 00:00:00 00:00:00 Andreea [id number] [facility] 2022-03-30 2022-03-30 Outpatient FOG_Goytia_ AOSM AOSM [id number] [facility] 00:00:00 00:00:00 Andreea [id number] [facility] 2022-03-26 2022-03-26 Outpatient FOG_Goytia_ AOSM AOSM [id number] [facility] 00:00:00 00:00:00 Andreea [id number] [facility] 2022-03-24 2022-03-24 Outpatient FOG_Goytia_ AOSM AOSM [id number] [facility] 00:00:00 00:00:00 Andreea [id number] [facility] 2022-03-23 2022-03-23 Outpatient FOG_Goytia_ AOSM AOSM [id number] [facility] 00:00:00 00:00:00 Andreea [id number] [facility] 2022-03-19 2022-03-19 Outpatient FOG_Goytia_ AOSM AOSM [id number] [facility] 00:00:00 00:00:00 Andreea [id number] [facility] 2022-03-12 2022-03-12 Outpatient Gayatri, HCACL LABO [id number] [facility] 16:20:00 16:20:00 Sean Monet [facility] 2022-03-12 2022-03-12 Outpatient FOG_Goytia_ AOSM AOSM [id number] [facility] 00:00:00 00:00:00 Andreea [id number] [facility] 2022-03-12 2022-03-12 Sean Saavedra AOSM [place] - Ortho [id number] [facility] 00:00:00 00:00:00 Anahy Mendieta MD: [id number] FOG_Ofc dic [facility] [address] , Ph. [phone] 2022-03-12 2022-03-12 Outpatient Gayatri, AOSM AOSM [id number] 00:00:00 00:00:00 Sean Saavedra [id number] 2022-03-03 2022-03-03 [facility] [id number] 00:00:00 00:00:00 EST A[facility] [id number] - [facility] 2022-03-02 2022-03-02 Outpatient FOG_Goytia_ AOSM AOSM 630 [id number] Mayela 00:00:00 00:00:00 Andreea [id number] [facility] 2022-03-01 2022-03-01 Outpatient FOG_Goytia_ AOSM AOSM 630 [id number] Mayela 00:00:00 00:00:00 Andreea [id number] [facility] 2022-01-31 2022-01-31 Outpatient FOG_Goytia_ AOSM AOSM 630 [id number] Mayela 09:51:00 09:51:00 Andreea [id number] [facility] 2022-01-31 2022-01-31 Outpatient FOG_Goytia_ AOSM AOSM 630 [id number] Mayela 09:51:00 09:51:00 Andreea [id number] [facility] 2022-01-22 2022-01-22 Outpatient FOG_Goytia_ AOSM AOSM 630 [id number] Mayela 04:32:00 04:32:00 Andreea [id number] [facility] 2022-01-08 2022-01-08 Outpatient FOG_Goytia_ AOSM AOSM 630 [id number] Mayela 10:40:00 10:40:00 Andreea [id number] [facility] 2022-01-08 2022-01-08 Sean Saavedra AOSM [place] - Ortho [id number] Mayela 00:00:00 00:00:00 Anahy Mendieta MD: [id number] [facility], [place] [id number] , Ph. [phone] 2022-01-08 2022-01-08 Outpatient Gayatri, AOSM AOSM [id number] 00:00:00 00:00:00 Sean Saavedra [id number] 2022-01-08 2022-01-08 Outpatient Gayatri, AOSM AOSM [id number] 00:00:00 00:00:00 Sean Saavedra [id number] 2021-12-24 2021-12-24 Outpatient FOG_Goytia_ AOSM AOSM 630 [id number] Mayela 12:20:00 12:20:00 Andreea [id number] [facility] 2021-12-23 2021-12-23 OFFICE STLMLC STLMLC [id number] Co mmon 00:00:00 00:00:00 VISIT EST Spir it PT LEVEL 3 - [facility] 2021-12-22 2021-12-22 (TEL) STLMLC STLMLC [id number] Co mmon 00:00:00 00:00:00 [facility] 2021-12-11 2021-12-11 (TEL) STLMLC STLMLC [id number] Co mmon 00:00:00 00:00:00 [facility] 2021-12-07 2021-12-07 (TEL) STLMLC STLMLC [id number] Co mmon 00:00:00 00:00:00 [facility] 2021-12-07 2021-12-07 (TEL) STLMLC STLMLC [id number] Co mmon 00:00:00 00:00:00 [facility] 2021-12-02 2021-12-02 OFFICE STLMLC STLMLC [id number] Co mmon 00:00:00 00:00:00 VISIT NEW Spir it PT LEVEL 3 - [facility] 2021-11-26 2021-11-26 OFFICE STLMLC STLMLC [id number] Co mmon 00:00:00 00:00:00 VISIT [facility] PT - CHI LEVEL 4 [facility] 2021-11-26 2021-11-26 (TEL) STLMLC STLMLC [id number] Co mmon 00:00:00 00:00:00 [facility] 2021-10-22 2021-10-22 Office DARRELL Gao [facility] [id number] [place] 11:00:00 11:49:46 Visit Kyle FATIMA [id number] [facility] [id number] PLAZA 3 [phone] 2021-08-19 2021-08-19 OFFICE STLMLC STLMLC [id number] Co mmon 00:00:00 00:00:00 VISIT EST Spir it PT LEVEL 3 - [facility] 2021-08-19 2021-08-19 Telephone Frances Perez [facility] 1.2.840. 114 [id number] [place] 00:00:00 00:00:00 Frances Perez [id number] [facility] MEDICAL [id number] PLAZA 9 [phone] 2021-07-17 2021-07-17 Office [place] DARRELL [facility] [id number] [place] 14:00:00 14:42:56 Visit Kyle FATIMA [id number] [facility] [id number] PLAZA 3 [phone] 2021-05-19 2021-05-19 [facility] [id number] Co mmon 00:00:00 00:00:00 VISIT EST Spir it PT LEVEL 3 - [facility] 2021-04-24 2021-04-24 Office [place] DARRELL [facility] [id number] [place] 13:14:04 14:29:07 Visit Kyle FATIMA [id number] [facility] [id number] PLAZA 3 [phone] Results Test Description Test Time Test Comments Results Result [facility] e Comments - XR PELVIS 08/022022-04-16 VIEWS 08:01:00 [facility] 1955 Sex: F Patient Name: DENNY SALAS Unit No: [id number] EXAMS: CPT CODE: [id number] XR PELVIS 08/02 VIEWS 64808 AP VIEW OF THE PELVIS. COMMENT: Severe bilateral hip osteoarthritis is noted with marked joint space narrowing. AP VIEW OF THE PELVIS. COMMENT: In progress total right hip arthroplasty. AP view of the pelvis COMMENT: COMPARISON: No prior exams available. Completed total right hip arthroplasty. Prosthesis appears to be in good position. at 0801 Reported and signed by: Jake Toney M.D. CC: Sean Mendieta Technologist: MARIIA DAVIS ARRT Transcribed D/ (0801) Wally [facility] NAME: DENNY SALAS [address] [facility] PHYS: Sean Leach MD : 1955 AGE: 66 SEX: F [place] [address] LOC: Y.313 A PHONE #: [phone] EXAM DATE: 04/15/2022 STATUS: ADM IN FAX #: [phone] RAD #: D/C DT PAGE 1 Signed Report Patient Name: DENNY SALAS Unit No: [id number] EXAMS: CPT CODE: [id number] XR PELVIS 08/02 VIEWS 89064 (Continued) Orig Print D/T: S: 04/16/2022 (0805) [facility] NAME: DENNY SALAS [address] [place] [address] PHYS: Sean Leach MD : 1955 AGE: 66 SEX: F [place], [place] [address] LOC: Y.313 A PHONE #: [phone] EXAM DATE: 04/15/2022 STATUS: ADM IN FAX #: [phone] RAD #: D/C DT PAGE 2 Signed Report - XR PELVIS /20212022-04-16 VIEWS 08:01:00 [facility] 1955 Sex: F Patient Name: DENNY SALAS Unit No: [id number] EXAMS: CPT CODE: [id number] XR PELVIS 1/2 VIEWS 96531 AP VIEW OF THE PELVIS. COMMENT: Severe bilateral hip osteoarthritis is noted with marked joint space narrowing. AP VIEW OF THE PELVIS. COMMENT: In progress total right hip arthroplasty. AP view of the pelvis COMMENT: COMPARISON: No prior exams available. Completed total right hip arthroplasty. Prosthesis appears to be in good position. at 0801 Reported and signed by: Jake Toney M.D. CC: Sean Mendieta Technologist: MARIIA DAVIS ARRT Transcribed D/ (08) AraceliSLJ [facility] NAME: DENNY SALAS [address] [place] [address] PHYS: Sean Leach MD : 1955 AGE: 66 SEX: F [place] [address] LOC: Y.313 A PHONE #: [phone] EXAM DATE: 04/15/2022 STATUS: ADM IN FAX #: [phone] RAD #: D/C DT PAGE 1 Signed Report Patient Name: DENNY SALAS Unit No: [id number] EXAMS: CPT CODE: [id number] XR PELVIS 1/2 VIEWS 47940 (Continued) Orig Print D/T: S: 04/16/2022 (0805) [facility] NAME: DENNY SALAS [address] [place] [address] PHYS: Sean Leach MD : 1955 AGE: 66 SEX: F [place], [place] [address] LOC: Y.313 A PHONE #: [phone] EXAM DATE: 04/15/2022 STATUS: ADM IN FAX #: [phone] RAD #: D/C DT PAGE 2 Signed Report - XR PELVIS 1/2 2022-04-16 VIEWS 08:01:00 [facility] 1955 Sex: F Patient Name: DENNY SALAS Unit No: [id number] EXAMS: CPT CODE: [id number] XR PELVIS 1/2 VIEWS 71797 AP VIEW OF THE PELVIS. COMMENT: Severe bilateral hip osteoarthritis is noted with marked joint space narrowing. AP VIEW OF THE PELVIS. COMMENT: In progress total right hip arthroplasty. AP view of the pelvis COMMENT: COMPARISON: No prior exams available. Completed total right hip arthroplasty. Prosthesis appears to be in good position. at 0801 Reported and signed by: Jake Toney M.D. CC: Sean Mendieta Technologist: SARAH RED (RT.R) Transcribed D/ (0801) MimiR.SLJ [facility] NAME: DENNY SALAS [address] [facility] PHYS: Sean Leach MD : 1955 AGE: 66 SEX: F [place], [place] [address] LOC: Y.313 A PHONE #: [phone] EXAM DATE: 04/15/2022 STATUS: ADM IN FAX #: [phone] RAD #: D/C DT PAGE 1 Signed Report Patient Name: DENNY SALAS Unit No: [id number] EXAMS: CPT CODE: [id number] XR PELVIS 1/2 VIEWS 57380 (Continued) Orig Print D/T: S: 04/16/2022 (0805) [facility] NAME: DENNY SALAS [address] [facility] PHYS: Sean Leach MD : 1955 AGE: 66 SEX: F [place], [place] [address] LOC: YDavid A PHONE #: [phone] EXAM DATE: 04/15/2022 STATUS: ADM IN FAX #: [phone] RAD #: D/C DT PAGE 2 Signed Report BASIC METABOLIC PANEL 2022-04-16 06:45:00 Test Item Value Reference Range Interpretation Comme nts SODIUM (test code = NA) 136 mmol/L 136-145 N POTASSIUM (test code = K) 4.7 mmol/L 3.5-5.1 N CHLORIDE (test code = CL) 103.0 mmol/L 98-107 N CARBON DIOXIDE (test code = 18.1 mmol/L 21-32 L CO2) GLUCOSE (test code = GLU) 88 mg/dL 70-110 N BLOOD UREA NITROGEN (test code 14 mg/dL 7-18 N = BUN) GLOMERULAR FILTRATION RATE 133.4 >60 U nit of measure: mL/min/1.73 (test code = GFR) [id number] Range:Healthy Adults >90 mL/m in/1.73 m2 For Chronic Kidney Disease: Stage II Mild Decreas e in GFR 60-90 Stage III Moder ate Decrease in GFR 30-59 St age IV Severe Decrease in GFR 15-29 Stage V Kidney Failure <15 CREATININE (test code = CREAT) 0.47 mg/dL 0.55-1.30 L CALCIUM (test code = CA) 7.6 mg/dL 8.2-10.1 L HGB [id number] 05:54:00 Test Item Value Reference Range Interpretation Comments HEMOGLOBIN (test code = HGB) 7.2 g/dL 12-16 L HEMATOCRIT (test code = HCT) 21.8 % 37-47 L SPECIMEN COMMENT: POD #1Hemoglobin and Hematocrit panel - [id number] 04:00:00 Test Item Value Reference Range Interpretation Comments hemoglobin (test code = hemoglobin) 7.2 g/dL 12-16 L hematocrit (test code = hematocrit) 21.8 % 37-47 L performing lab: (test code = performing lab:) [facility] [place] [facility] Medicine[facility]em[facility] and Hematocrit panel - Blood 2022-04-16 04:00:00 Test Item Value Reference Range Interpretation Comments hemoglobin (test code = hemoglobin) 7.2 g/dL 12-16 L hematocrit (test code = hematocrit) 21.8 % 37-47 L performing lab: (test code = performing lab:) [facility] [place] [facility] Sports MedicineCOMPREHENSIVE METABOLIC [id number] 18:10:00 Test Item Value Reference Range Interpretation Comments SODIUM (test code = 138 mmol/L 136-145 N NA) POTASSIUM (test code = 4.0 mmol/L 3.5-5.1 N K) CHLORIDE (test code = 101.0 mmol/L 98-107 N CL) CARBON DIOXIDE (test 27.9 mmol/L 21-32 N code = CO2) GLUCOSE (test code = 116 mg/dL 70-110 H GLU) BLOOD UREA NITROGEN 17 mg/dL 7-18 N (test code = BUN) GLOMERULAR FILTRATION 74.4 >60 Unit o f measure: RATE (test code = GFR) mL/mi n/1.73 [id number] Range:Healthy Adults >90 mL/min/1.73 m2 For Chronic Kidney Disease: Stage II Mild Decrease i n GFR 60-90 Stage III Moderate Decrea se in GFR 30-59 St age IV Severe Decre ase in GFR 15-29 St age V Kidney Failur e <15 CREATININE (test code 0.78 mg/dL 0.55-1.30 N = CREAT) TOTAL PROTEIN (test 7.8 g/dL 6.4-8.2 N code = PROT) ALBUMIN (test code = 4.0 g/dL 3.4-5.0 N ALB) GLOBULIN (test code = 3.8 g/dL 2.2-4.2 N GLOB) ALBUMIN/GLOBULIN RATIO 1.1 0.7-2.0 N (test code = A/G) CALCIUM (test code = 9.5 mg/dL 8.2-10.1 N CA) BILIRUBIN TOTAL (test 0.30 mg/dL 0.2-1.00 N code = BILT) SGOT/AST (test code = 13.0 U/L 15-37 L AST) SGPT/ALT (test code = 25.0 U/L 12-78 N Please note new ALT) normal range. ALKALINE PHOSPHATASE 79 U/L 46-116 N TOTAL (test code = ALKP) PROTHROMBIN [id number] 15:01:00 Test Item Value Reference Range Interpretation Comments PROTHROMBIN TIME 12.8 secs 9.7-12.5 H Please note new normal PATIENT (test code = range. PTP) INTERNATIONAL NORMAL 1.15 <2.0 RECOMME NDED THERAPEUTIC RATIO (test code = RANGE FOR ORAL INR) ANTICOAGULANTTR EATMENT: CONDITION INRPr ophylaxis of venous throm bosis in 2.0 - 3.0 high- risk medical or surg ical patientsTreatme nt of venous thrombos is 2.0 - 3.0Prevention o f embolism 2.0 - 3.0Prevention o f recurrent embol ism, or 3.0 - 4.5 patie nts with mechanical pros thetic intravascular v [place] IS PATIENT ON ANTICOAGULANTS ? NHas Lab been notified if Patient is on Heparin Drip? NOTHROMBOPLASTIN TIME [id number] 15:01:00 Test Item Value Reference Range Interpretation Comments PTT ACTIVATED (test 30.8 secs 26.6-34.6 N Please n ote new code = APTT) normal range. IS PATIENT ON ANTICOAGULANTS ? NHas Lab been notified if Patient is on Heparin Drip? NOCBC W/AUTO [id number] 14:31:00 Test Item Value Reference Range Interpretation Comments WHITE BLOOD CELL (test code = WBC) 6.1 K/mm3 5.8-11.0 N RED BLOOD CELL (test code = RBC) 4.44 M/mm3 4.2-5.4 N HEMOGLOBIN (test code = HGB) 13.9 g/dL 12-16 N HEMATOCRIT (test code = HCT) 39.5 % 37-47 N MEAN CELL VOLUME (test code = MCV) 89 fL 80-98 N MEAN CELL HGB (test code = MCH) 31.3 pg 27-34 N MEAN CELL HGB CONCENTRATION (test 35.2 g/dL 30.8-34.1 H code = MCHC) RED CELL DISTRIBUTION WIDTH (test 11.7 % 11-16 N code = RDW) PLT (test code = PLT) 278 K/mm3 130-400 N MEAN PLATELET VOLUME (test code = 10.3 fL 8.9-12.1 N MPV) NEUTROPHIL % (test code = NT%) 58.6 % 45-70 N LYMPHOCYTE % (test code = LY%) 31.2 % 20-40 N MONOCYTE % (test code = MO%) 6.7 % 3-10 N EOSINOPHIL % (test code = EO%) 2.6 % 1-5 N BASOPHIL % (test code = BA%) 0.7 % 0.0-1.1 N NEUTROPHIL # (test code = NT#) 3.60 K/mm3 2.00-7.50 N LYMPHOCYTE # (test code = LY#) 1.91 K/mm3 1.50-4.00 N MONOCYTE # (test code = MO#) 0.41 K/mm3 0.2-0.8 N EOSINOPHIL # (test code = EO#) 0.16 K/mm3 0.04-0.4 N BASOPHIL # (test code = BA#) 0.04 K/mm3 0.02-0.10 N MANUAL DIFF REQUIRED (test code = NO MANUAL DIFF MDIFF) NUCLEATED RED BLOOD CELL (test 0 % 0-0 N code = NRBC)
[2022-09-14] MEDS: HYDROMORPHONE HCL 1 MG/ML INJ ONE ×2 (11:27→11:45)
[2022-09-14 11:52] LABS: Hematocrit 33.6 % (36.0-45.0)
--- NOTE | 2022-09-14 12:38 | OP ---
Date of Procedure: 09/14/2022 Surgeon: Sergey Nunes MD Preoperative Diagnosis: Severe right hip arthritis. Postoperative Diagnosis: Severe right hip arthritis. Procedure: Right hip total hip arthroplasty using the Doyline system. Estimated Blood Loss: 150 cc. Complications: There were no complications. Indications For Operation: Ms. Salas is a 67-year-old female who has been troubled with the hip for s ome time. She had her contralateral hip done at an outside facility, but arrived to see me with mamta re continued pain with her left hip. Risks, benefits, and alternatives to total hip arthroplasty wer e discussed with her. She has been cleared and all of her questions have been answered, and she agre es to proceed. Description Of Procedure: The patient was taken to the operating room, placed in supine position. S he was then transferred to the operative bed. A spinal anesthesia was then obtained by Anesthesia. She was then rolled right side down with all bony prominences being checked and an axillary roll bein g placed. She was then appropriately positioned using hip positioners. Following this, her left low er extremity was then prepped and draped in usual sterile fashion for the procedure. A standard post erolateral incision was taken down carefully through skin and soft tissues. There was quite a bit of adipose tissue. This leads down to the fascia. A small stab wound was made in the fascia for palpa tion of the gluteal tendon demonstrating the correct position of the fascial incisions. The fascial incision was then carefully taken up to near the tip of the greater trochanter. The sciatic nerve wa s palpated and protected as the fibers of gluteus taryn are spread and also protected as the Charnl ey was being placed. There was quite a bit of bursal tissue which was carefully removed. Great care being taken to avoid injury to the sciatic nerve. Followed by this, the external rotators and capsu le were then taken down and tagged for later repair. This reveals the hip, the posterior and superio r aspect of the labrum were removed. The hip was dislocated. A slightly lower than standard neck cu t was then made. The hip was then sized using ring gauges to a size 49. Acetabulum was then inspect ed and the remainder of the obstructive soft tissue and labrum were removed. It is deepened somewhat using a size 47 reamer and then sequentially reamed up to a size 51. After this, decision was made to place the acetabular component, which appeared to be well fixed. However, thought it could possib ly be a little vertical. It is difficult to nurse receptionist based on patient's positions and fairly large BMI, but decision was made to at least get radiographs of this. After this, the attention was turned to the femur. glass cutter helper was used to lateralize, and then, the stem was then sequentially broached to a size 5. After this, the initial x-ray was taken, which does demonstrate that although hard to read because the patient's size and positioning. It does appear that the acetabulum is a little bit verti nettie and decision was made to perhaps place little bit more horizontal, as well as establish a little bit more anteversion of the cup. This was then secured in place and palpated with vigorous palpation of the finger. We were unable to move this and it was felt to be well fixed. Feet x-rays demonstra bandar the change of position, which I feel is somewhat better. After this, the liner was then placed a nd the final stem was placed. It was then trialed with a standard ball which appears to come easily to extension. There is no lateral or inferior shuck and appears to be stable to full flexion, adduct ion, and internal rotation to at least 40 degrees. This was attempted a trial with a +4. The +4 was very difficult to even try to get relocated. It was felt that this was most likely too long anyway, and therefore, decision was made to go with the 0 size. A size 5 standard offset stem was then plac ed with the 0 ball. It was then relocated and tested. It was again stable in above areas. The woun d was copiously irrigated and external rotators and capsule were repaired back to the greater trochan ter via bone tunnels. This was followed by irrigation and closure of the fascia using heavy Vicryl s utures. This was followed by irrigation and closure of the skin using Vicryl, followed by sandra. The patient was then placed in Pending sale to [facility] and taken to recovery room. /TRACEY Voice ID: [id number] Report ID: [id number]
[2022-09-14 13:09] VITALS: BMI 41.8
[2022-09-14] MEDS: CEFAZOLIN 1 GM in NA CHLORIDE 0.9% 50 ML IVPB SCH ×3 (13:20→23:08)
[2022-09-14] MEDS ORDERED: ALBUTEROL INHALER 60 PUFF/8 GM IH PRN (15:29)
[2022-09-14] MEDS ORDERED: HOME MED 1 EA UNK [ALBUTEROL INHALER 60 PUFF/8 GM] IH PRN (15:32)
[2022-09-14] MEDS ORDERED: ALBUTEROL 2.5 MG/3 ML NEB SOL NEB PRN (15:32)
[2022-09-14] MEDS ORDERED: LABETALOL 20 MG/4ML SYRINGE IV PRN (15:34)
--- NOTE | 2022-09-14 15:35 | P.CNS ---
Date of Consult: 09/14/22 Reason for Consult: Medical management. Requesting Physician: Sergey Nunes Chief Complaint: Left hip pain. History of Present Illness: Patient is a 67-year-old female with a past medical history significant for osteoarthritis, hypertension, GERD, obesity who presents for a planned procedure with her orthopedic surgeon. Patient reported that she has been having left hip pain secondary to left hip osteoarthritis for the past 2 years. Patient reported that she has attempted conservative measures and pain medication but has not had any relief. Patient agreed with orthopedic surgeon to perform a left hip total arthroplasty. Patient successfully tolerated the procedure. Patient reported associated signs and symptoms of nausea. Patient denies any other signs and symptoms. Symptoms are aggravated or relieved by nothing. Patient comfortably resting in bed. Allergies No Known Allergies Allergy (Verified 09/14/22 06:42) Home Medications: Albuterol Sulfate [Albuterol Sulfate Hfa] 8.5 gm IH PRN PRN 09/09/22 Celecoxib 200 mg PO DAILY 09/09/22 Diclofenac Sodium [Aspercreme Arthritis Pain] 50 gm TP DAILYPRN PRN 09/09/22 Lisinopril/Hydrochlorothiazide [Lisinopril-Hctz 20-12.5 mg Tab] 1 each PO DAILY 09/09/22 Omeprazole [Prilosec] 40 mg PO DAILY 09/09/22 - Past Medical/Surgical History Diabetic: No -: HYPERTENSION -: Osteoarthritis -: GERD -: RIGHT TOTAL HIP 2021 -: PLATE R WRIST 2014 -: TUBAL LIGATION 1984 -: TONSILLECTOMY - Family History Father Medical History: Diabetes, Other (see notes) Notes: OBESTITY. NASAL POLYPS Mother Medical History: Hypertension, Diabetes, Other (see notes) Notes: ARTHRITIS - Social History Smoking Status: Never smoker Alcohol use: No CD- Drugs: No Caffeine use: Yes Place of Residence: Home Review of Systems General: Unremarkable ENT: Unremarkable Respiratory: Unremarkable Cardiovascular: Unremarkable Gastrointestinal: Nausea Genitourinary: Unremarkable Musculoskeletal: Other (Left hip pain) Integumentary: Unremarkable Neurological: Unremarkable Lymphatics: Unremarkable Physical Examination Temp Pulse Resp BP Pulse Ox 97.3 F 96 H 18 146/64 H 09/14/22 11:52 09/14/22 11:52 09/14/22 11:52 09/14/22 11:52 General: Alert, In no apparent distress, Cooperative HEENT: Atraumatic, Normocephalic, PERRLA, Mucous membr. moist/pink, EOMI Neck: Supple, 2+ carotid pulse no bruit, JVD not distended, Without JVD or thyroid abnormality Respiratory: Clear to auscultation bilaterally, Normal air movement Cardiovascular: No edema, Normal pulses, Regular rate/rhythm, No murmurs Capillary refill: <2 Seconds Gastrointestinal: Normal bowel sounds, Soft and benign, No tenderness Musculoskeletal: No clubbing, Tenderness Integumentary: No rashes, No significant lesion, No warmth Neurological: Normal speech, Sensation intact, Normal affect Lymphatics: No axilla or inguinal lymphadenopathy Laboratory Data (last 24 hrs) 09/14/22 11:36: Hgb 11.2 L, Hct 33.6 L Conclusions/Impression: -- Left hip pain. Status post left hip total arthroplasty. Patient working [facility] physical therapy. Surgeon on board. Further management per surgeon. --Acute pain. We will manage pain with current pain medication regimen. --Hypertension. Poorly controlled. Continue home medications and labetalol as needed. --GERD. Continue home medication. --Obesity. Likely secondary to excess calories intake. Patient counseled on weight reduction, diet and excise therapy. --UTI POA. Continue antibiotics. Urine cultures pending. --Nausea. Antiemetics on board. Continue supportive care. --CKD 2. Stable. We will continue to monitor renal functions. --DVT prophylaxis with SCDs. Continue chemical prophylaxis in a.m. Physician Review: Patient Assessed, Agree with Above Assessment and Plan Critical Care: No
--- NOTE | 2022-09-14 15:45 | RAD REPORT ---
EXAM DESCRIPTION: RAD - Hip Left 1 View - 09/14/2022 10:08 am CLINICAL HISTORY: TOTAL COMPARISON: No comparisons FINDINGS/IMPRESSION: Single view of the left hip with left acetabular component in place. There has been resection of the left proximal femur.
[2022-09-14 17:06] LABS: Hematocrit 34.7 % (36.0-45.0)
--- NOTE | 2022-09-14 17:34 | EKG ---
Test Date: 2022-09-09 Test Time: 10:14:26 Preschool Teacher: JENNIFER MEASUREMENT RESULTS: Intervals: Rate: 71 NC: 210 QRSD: 80 QT: 384 QTc: 417 Saxon: P: 55 NC: 210 QRS: 53 T: 73 INTERPRETIVE STATEMENTS: Sinus rhythm with 1st degree AV block Cannot rule out Anterior infarct, age undetermined Abnormal ECG No previous ECG available for comparison Electronically Signed On 09-14-22 17:20:32 [employer]EL[employer] COMBINATION by Angel Carvajal
[2022-09-14 19:39] LABS: Magnesium 1.9 mg/dL (1.6-2.4); Phosphorus 3.3 mg/dL (2.5-4.9)
[2022-09-15 03:10] LABS: Hematocrit 28.2 % (36.0-45.0); MCV 91.7 fL (80-100); MPV 7.8 fL (7.6-11.3); RBC Red Blood Cell Count 3.07 M/uL (3.86-4.86)
[2022-09-15 03:22] LABS: Potassium 4.2 mmol/L (3.5-5.1)
[2022-09-15] MEDS ORDERED: HOME MED 1 EA UNK (Lisinopril/Hydrochlorothiazide [Lisinopril-Hctz 20-12.5 Mg Tab] Tablet) PO SCH (09:00)
[2022-09-15] MEDS ORDERED: ENOXAPARIN 40 MG/0.4 ML SQ SCH (09:00)
[2022-09-15] MEDS ORDERED: lisinopriL 20 MG TAB PO SCH (09:00)
[2022-09-15] MEDS ORDERED: HOME MED 1 EA UNK (Omeprazole [Prilosec] 40 MG Capsule.Dr) PO SCH (09:00)
[2022-09-15] MEDS ORDERED: PANTOPRAZOLE 40MG TABLET PO SCH (09:00)
[2022-09-15] MEDS ORDERED: hydroCHLOROthiazide 12.5 MG CAP PO SCH (09:00)
[2022-09-15 09:06] LABS: Hematocrit 28.4 % (36.0-45.0)
[2022-09-15 10:00] LABS: Specific Gravity 1.011 (1.005-1.030); Urine Bacteria <20 /HPF (<20); Urine Bilirubin NEGATIVE (Negative); Urine Blood 1+ (Negative); Urine Clarity Clear (Clear); Urine Color Light-Yellow (Yellow); Urine Glucose NEGATIVE (Negative); Urine Mucus Slight /HPF (None Seen); Urine Protein TRACE (Negative); Urine Urobilinogen Normal (Normal); Urine pH 5.5 (5.0-7.0)
[2022-09-15 10:02] VITALS: O2SAT 97
[2022-09-15 12:33] VITALS: BP 100/52; TEMP 99.7
--- NOTE | 2022-09-15 22:20 | P.PN ---
Date of Service: 09/15/22 Subjective: feeling well, minimal pain ambulated with PT asking about going home today ROS: A complete review of systems was performed and is negative except as mentioned above Physical Exam: Gen: NAD, AOx3 HEENT: normal conjunctiva, sclera anicteric CV: regular rate & rhythm, no edema Pulm: non-labored respirations, clear bilaterally MSK: no contractures, mild tenderness of thights Skin: no rashes, no lesions Neuro: normal speech, normal affect, moves all extremities vitals reviewed Problem List left hip pain s/p total arthroplasty HTN GERD Obesity UTI ruled out CKD 2 katharine dhillon pos-op s/p total hip athroplasty, by Dr. Nunes doing well post-op +flatus pain control resume home meds stable for dc home by my standpoint
== END 2022-09-15 14:35 | disposition home health service (06) ==
LOC: OR 05:58 → 4TH 11:08
PROVIDERS: ADMIT Orthopaedic Surgery; ATTEND Orthopaedic Surgery
PROC: 0SR90JA Replacement of Right Hip Joint with Synthetic Substitute, Uncemented, Open Approach (ICD-10-PCS; principal; 2022-09-14 07:00)
DX: M16.12 Unilateral primary osteoarthritis, left hip (principal); I10 Essential (primary) hypertension; K21.9 Gastro-esophageal reflux disease without esophagitis; N39.0 Urinary tract infection, site not specified; I12.9 Hypertensive chronic kidney disease with stage 1 through stage 4 chronic kidney disease, or unspecified chronic kidney disease; N18.2 Chronic kidney disease, stage 2 (mild); E66.9 Obesity, unspecified; Z20.822 Contact with and (suspected) exposure to COVID-19
CPT/HCPCS: 93005; 87088; 85025 ×2; 81001 ×2; 87086; 80048; 36415 ×3; 86900; 83735; 86850; 82550; 84100; 85610; 80061; 86901; 88305; 88311; 85730; 85018 ×3; 85014 ×3; 83036; 80053; 71046; 73501; 97110; 97116 ×3; 97161; 97530 ×2; 94010; 87811; 27130; J2704 ×3; J0171 ×2; J2370; J2001; J1650; J2250; J3010; J1100; A4216 ×2; J1170; J7120 ×2; J0690 ×2; G0378; G0379